=== PATIENT | male | born 1970 | race Caucasian/White ===

== ENCOUNTER 2016-09-19 07:07 | Inpatient (IN) | payer OTHER ==
[~2016-09-19] VITALS: Ht 185.4 cm; Wt 186.9 kg
[2016-09-19 08:22] LABS: BASOPHIL 0.2 % (0-2); EOSINOPHIL 2.6 % (0-5); HCT 43.4 % (42.0-52.0); HGB 15.4 g/dl (13.2-18.0); LYMPHOCYTE 9.5 % (15-48); MCH 29.8 pg (25.0-31.0); MCHC 35.5 g/dL (32.0-36.0); MCV 84.1 fL (78.0-100.0); MONOCYTE 8.1 % (0-12); NEUTROPHIL 79.6 % (41-80); PLT 347 K/uL (150-400); RBC 5.16 M/uL (4.70-6.00); RDW 12.9 % (11.5-14.0); WBC 24.1 K/uL (4.0-10.5)
[2016-09-19 08:34] LABS: LACTIC ACID 2.1 mmol/L (0.5-2.2)
[2016-09-19 08:41] LABS: ALBUMIN 3.9 g/dL (3.5-5.0); BILIRUBIN - TOTAL 0.6 mg/dL (0.1-1.0); CREATININE 0.9 mg/dL (0.7-1.2); GLOBULIN (CALCULATION) 3.3 g/dL (2.2-4.2); POTASSIUM 4.1 mmol/L (3.5-5.1); TOTAL PROTEIN 7.2 g/dL (6.4-8.3)
[2016-09-19 13:39] LABS: BILIRUBIN NEGATIVE (NEGATIVE); BLOOD NEGATIVE Ery/uL (NEGATIVE); CLARITY CLEAR (CLEAR); COLOR YELLOW (YELLOW); GLUCOSE (U) 3+ mg/dL (NORMAL); KETONE (U) TRACE mg/dL (NEGATIVE); LEUKOCYTES NEGATIVE Leu/uL (NEGATIVE); NITRITE NEGATIVE (NEGATIVE); PROTEIN 1+ mg/dL (NEGATIVE); SPECIFIC GRAVITY <=1.005 (1.001-1.030)
[2016-09-19 13:43] LABS: BACTERIA TRACE
[2016-09-20 05:54] LABS: BASOPHIL 0 % (0-2); EOSINOPHIL 0.1 % (0-5); HCT 40.3 % (42.0-52.0); HGB 14.2 g/dl (13.2-18.0); LYMPHOCYTE 7.8 % (15-48); MCH 29.7 pg (25.0-31.0); MCHC 35.2 g/dL (32.0-36.0); MCV 84.3 fL (78.0-100.0); MONOCYTE 5.8 % (0-12); MPV 9.8 fL (6.0-9.5); NEUTROPHIL 86.3 % (41-80); PLT 326 K/uL (150-400); RBC 4.78 M/uL (4.70-6.00); RDW 12.8 % (11.5-14.0); WBC 23.1 K/uL (4.0-10.5)
[2016-09-20 06:22] LABS: ALBUMIN 3.6 g/dL (3.5-5.0); BILIRUBIN - TOTAL 0.3 mg/dL (0.1-1.0); CREATININE 0.7 mg/dL (0.7-1.2); GLOBULIN (CALCULATION) 2.7 g/dL (2.2-4.2); MAGNESIUM 1.94 mg/dL (1.40-2.10); POTASSIUM 4.6 mmol/L (3.5-5.1); TOTAL PROTEIN 6.3 g/dL (6.4-8.3)
[2016-09-21 05:11] LABS: BASOPHIL 0.2 % (0-2); EOSINOPHIL 2.5 % (0-5); HCT 40.3 % (42.0-52.0); HGB 13.9 g/dl (13.2-18.0); LYMPHOCYTE 16.3 % (15-48); MCH 29.4 pg (25.0-31.0); MCHC 34.5 g/dL (32.0-36.0); MCV 85.2 fL (78.0-100.0); MONOCYTE 6.9 % (0-12); MPV 9.5 fL (6.0-9.5); NEUTROPHIL 74.1 % (41-80); PLT 310 K/uL (150-400); RBC 4.73 M/uL (4.70-6.00); RDW 13.1 % (11.5-14.0); WBC 17.1 K/uL (4.0-10.5)
[2016-09-21 05:41] LABS: CREATININE 0.9 mg/dL (0.7-1.2); POTASSIUM 4.2 mmol/L (3.5-5.1)
== END 2016-09-21 16:40 | disposition home or self-care (01) | DRG 871 ==
LOC: FER 07:07 → FMS 10:20
PROVIDERS: Internal Medicine; ADMIT Internal Medicine Nephrology
DX: A41.9 Sepsis, unspecified organism (principal); J15.29 Pneumonia due to other staphylococcus; G37.3 Acute transverse myelitis in demyelinating disease of central nervous system; Z68.43 Body mass index [BMI] 50.0-59.9, adult; E11.65 Type 2 diabetes mellitus with hyperglycemia; N40.0 Benign prostatic hyperplasia without lower urinary tract symptoms; E66.01 Morbid (severe) obesity due to excess calories; G47.33 Obstructive sleep apnea (adult) (pediatric); I10 Essential (primary) hypertension; J45.909 Unspecified asthma, uncomplicated; F17.210 Nicotine dependence, cigarettes, uncomplicated; M54.9 Dorsalgia, unspecified; G89.29 Other chronic pain; Z79.4 Long term (current) use of insulin; Z79.899 Other long term (current) drug therapy; Z88.7 Allergy status to serum and vaccine
CPT/HCPCS: 36415; 36600; 71020; 71250; 80048; 80053; 81001; 82803; 82962; 83036; 83605; 83735; 85025; 87040; 87070; 87077; 87186; 87205; 87450; 93005; 94010; 94640; 94667; 94668; J1815; J1956; J2930

== ENCOUNTER 2021-08-11 23:17 | Emergency (ER) | payer OTHER ==
[~2021-08-11 23:17] MED LIST: CYMBALTA60 MG PO; DULOXETINE HCL30 MG PO
== END 2021-08-12 01:15 | disposition home or self-care (01) ==
LOC: FER 23:17
DX: S90.422A Blister (nonthermal), left great toe, initial encounter (principal); E11.9 Type 2 diabetes mellitus without complications; J45.909 Unspecified asthma, uncomplicated; F17.210 Nicotine dependence, cigarettes, uncomplicated; Z88.7 Allergy status to serum and vaccine; Z79.4 Long term (current) use of insulin; Z88.8 Allergy status to other drugs, medicaments and biological substances
CPT/HCPCS: 99283